=== PATIENT | male | born 1960 | race Caucasian/White ===

== ENCOUNTER 2016-09-28 07:33 | Emergency (ER) | payer OTHER ==
[2016-09-28] MEDS ORDERED: ASPIRIN PO STA (07:43)
[2016-09-28] MEDS ORDERED: NITROGLYCERIN SL PRN (07:43)
--- NOTE | 2016-09-28 08:02 | PROVIDER DOCUMENTATION ---
HPI-Chest Pain <Dio Brady - Last Filed: 09/28/16 09:23> - General Source: patient, EMS Unable to obtain history due to:: urgency - History of Present Illness-CP Location: reports: substernal Chest Pain Radiation: reports: arms Quality of Pain: reports: sharp Severity in ED: mild, moderate Onset/Duration: 3 days ago Timing: still present Context/Activities at Onset: reports: light activity Modifying Factors: improves with: nothing Associated Symptoms: reports: shortness of breath Nitro Today/Relief: no nitro taken today Aspirin Treatment Today: no aspirin today Prior Chest Pain/Cardiac Workup: reports: non-cardiac Similar Symptoms Previously?: Yes Recently Seen Here or By Another Healthcare Provider: No <Shakir Borges I - Last Filed: 09/28/16 09:27> - General Chief Complaint: Chest Pain Stated Complaint: CP Time Seen by Provider: 09/28/16 07:42 Allergies/Adverse Reactions: Patient Allergies Allergy/AdvReac Type Severity Reaction Status Date / Time butorphanol tartrate * Allergy Mild Unknown Verified 09/28/16 08:37 [From Stadol] ciprofloxacin [From Cipro] Allergy Mild Unknown Verified 09/28/16 08:37 nalmefene HCl * [From Revex] Allergy Mild Unknown Verified 09/28/16 08:37 naloxone HCl * [From Narcan] Allergy Mild Unknown Verified 09/28/16 08:37 tramadol HCl * [From Ultram] Allergy Mild Unknown Verified 09/28/16 08:37 Home Medications: Home Medication List Medication Instructions Recorded Confirmed Last Taken Type Alprazolam [Xanax] 0.5 mg PO TID 06/19/14 09/28/16 11/29/15 12:00 History Insulin Aspart [Novolog] 100 unit SQ DIRECTED 06/19/14 09/28/16 11/29/15 12: 00 History Insulin Glargine [Lantus] 20 units SQ DAILY 06/19/14 09/28/16 11/29/15 07:00 History Methadone 150 mg PO DAILY 06/19/14 09/28/16 11/29/15 06:00 History Pantoprazole [Protonix] 40 mg PO DAILY@0700 #30 tablet 07/17/14 09/28/16 07:00 Rx - History of Present Illness-CP Nature of Presenting Problem: Complains of chest pain starting 3 days ago substernally, radiating to his right arm. He has ran out of his xanax, and says the [facility] won't fill it. No other complaints (Shakir Borges I) Review of Systems - Adult - REVIEW OF SYSTEMS - ADULT Constitutional: reports: no symptoms reported Eyes: reports: no symptoms reported Ears, Nose, Mouth & Throat: reports: no symptoms reported Cardiovascular: reports: see HPI, chest pain Respiratory: reports: no symptoms reported Genitourinary: reports: no symptoms reported Musculoskeletal: reports: no symptoms reported Integumentary: reports: no symptoms reported Neurological: reports: no symptoms reported Psychiatric: reports: no symptoms reported Endocrine: reports: no symptoms reported Hematologic/Lymphatic: reports: no symptoms reported Allergic/Immunologic: reports: no symptoms reported All Other Systems: Reviewed and Negative <Shakir Borges I - Last Filed: 09/28/16 09:27> Past History - Adult - PAST MEDICAL HISTORY-ADULT Review of Records: reports: Old Records Reviewed, Nursing Assessment Review, Medications Reviewed, Social history reviewed & non-contributory. Major Childhood Illnesses: reports: denies history Cardiovascular: reports: denies history Respiratory: reports: denies history Gastrointestinal: reports: hepatitis Obstetrical/Gynecological: reports: denies history Genitourinary: reports: denies history Musculoskeletal: reports: arthritis, chronic pain, other (left BKA) Neurological: reports: denies history Endocrine/Immune: reports: Diabetes Other Conditions: reports: other (HEP C) - PRIOR SURGERIES/PROCEDURES Surgical/Procedure History: reports: orthopedic (extremity) - IMMUNIZATION STATUS Childhood Immunizations: See Nurse Assessment Flu Vaccine: See Nurse Assessment <Shakir Borges I - Last Filed: 09/28/16 09:27> Physical Exam-General - PHYSICAL EXAM-ADULT Initial Vital Signs Reviewed: Yes - CONSTITUTIONAL General Appearance: appears well, mild distress - EYES Eyes: PERRL/EOMI, pink conjunctivae, fundi clear, no AV nicking - HEAD, EARS, NOSE, MOUTH & THROAT HENMT: normocephalic/atraumatic, moist mucous membranes, normal ENT inspection - NECK Neck: non-tender - RESPIRATORY Respiratory: chest non-tender, lungs clear, normal breath sounds - CARDIOVASCULAR Cardiovascular: normal peripheral pulses, regular rate, rhythm, no edema - CHEST (BREASTS) Chest/Breast: deferred - GASTROINTESTINAL (ABDOMEN) Abdominal Exam: normal bowel sounds, non tender, soft - GENITOURINARY Female Genitalia/Pelvic Exam: deferred, external exam normal Male Genitalia: deferred Rectal Exam: deferred - LYMPHATIC Lymphatic: no adenopathy - MUSCULOSKELETAL Back Exam: normal inspection Extremity: normal range of motion, non-tender - SKIN Integumentary: normal color, normal turgor, warm/dry - NEUROLOGIC Neurologic: cleaning technician II-XII nml as tested, grossly normal, no motor/sensory deficits - PSYCHIATRIC Psych/Mental Status: normal mood/affect <Shakir Borges I - Last Filed: 09/28/16 09:27> Progress - XRAY 1 XRAY Study: Chest Impression: Normal XRAY Interpretation: negative <Dio Brady - Last Filed: 09/28/16 09:23> - EKG 1 Time of EKG reading by physician:: 07:00 EKG Read and Signed by:: Shakir Borges Rate: 83 Rhythm: sinus [place]: normal QRS: normal NM Interval: normal ST Wave: non-specific ST changes Prior EKG Comparison: unchanged from prior <Shakir Borges I - Last Filed: 09/28/16 09:27> - PLAN OF CARE/RESULTS Progress/Plan/Lab Results: Vital Signs Temp Pulse Resp BP Pulse Ox 09/28/16 09:20 68 125/74 97 09/28/16 07:46 98.3 F 83 18 186/107 100 butorphanol tartrate * [From Stadol] Allergy (Mild, Verified 09/28/16 08:37) Unknown ciprofloxacin [From Cipro] Allergy (Mild, Verified 09/28/16 08:37) Unknown nalmefene HCl * [From Revex] Allergy (Mild, Verified 09/28/16 08:37) Unknown naloxone HCl * [From Narcan] Allergy (Mild, Verified 09/28/16 08:37) Unknown tramadol HCl * [From Ultram] Allergy (Mild, Verified 09/28/16 08:37) Unknown Alprazolam [Xanax] 0.5 mg PO TID 06/19/14 Insulin Aspart [Novolog] 100 unit SQ DIRECTED 06/19/14 Insulin Glargine [Lantus] 20 units SQ DAILY 06/19/14 Methadone 150 mg PO DAILY 06/19/14 Pantoprazole [Protonix] 40 mg PO DAILY@0700 #30 tablet 07/17/14 Laboratory 09/28/16 09/28/16 09/28/16 07:52 07:52 07:52 WBC RBC Hgb Hct MCV MCH MCHC RDW Std Deviation Plt Count MPV Immature Gran % (Auto) Neut % (Auto) Lymph % (Auto) [place] % (Auto) Eos % (Auto) Baso % (Auto) Immature Gran # (Auto) Neut # (Auto) Lymph # (Auto) [place] # (Auto) Eos # (Auto) Baso # (Auto) PT 10.7 INR 1.01 PTT (Actin FS) 24.3 Sodium Potassium Chloride Carbon Dioxide Anion Gap BUN Creatinine Estimated GFR/1.73 m2 BUN/Creatinine Ratio Glucose Calculated Osmolality Calcium Magnesium Total Bilirubin AST ALT Alkaline Phosphatase Creatine Kinase Troponin T < 0.010 [id number]-G-[id number] Pept 747 H Total Protein Albumin Globulin Albumin/Globulin Ratio 09/28/16 09/28/16 07:52 07:52 WBC 7.21 RBC 4.58 L Hgb 13.1 L Hct 37.7 L MCV 82.3 MCH 28.6 MCHC 34.7 RDW Std Deviation 14.0 Plt Count 209 MPV 10.3 Immature Gran % (Auto) 0.3 Neut % (Auto) 74.6 Lymph % (Auto) 19.0 L [place] % (Auto) 5.4 Eos % (Auto) 0.3 Baso % (Auto) 0.4 Immature Gran # (Auto) 0.02 Neut # (Auto) 5.38 Lymph # (Auto) 1.37 [place] # (Auto) 0.39 Eos # (Auto) 0.02 Baso # (Auto) 0.03 PT INR PTT (Actin FS) Sodium 134 L Potassium 3.9 Chloride 95 L Carbon Dioxide 25 Anion Gap 14 BUN 8 Creatinine 0.9 Estimated GFR/1.73 m2 > 60 BUN/Creatinine Ratio 9 Glucose 302 H Calculated Osmolality 278 Calcium 9.6 Magnesium 1.7 Total Bilirubin 0.83 AST 50 H ALT 84 H Alkaline Phosphatase 85 Creatine Kinase 24 Troponin T Oqv-K-Bwguteorytx Pept Total Protein 7.4 Albumin 3.8 Globulin 3.6 Albumin/Globulin Ratio 1.1 Orders Category Date Time Status Cardiac Monitoring DIRECTED Care 09/28/16 07:43 Active Saline Loc NOW Care 09/28/16 07:43 Active CHEST-1 VIEW [RAD] Stat Exams 09/28/16 07:44 Draft CBC WITH ELECTRONIC DIFF [HEME] Stat Lab 09/28/16 07:52 Completed CK PROFILE [SP CHEM] Stat Lab 09/28/16 07:52 Completed COMPREHENSIVE METABOLIC PANEL [CHEM] Stat Lab 09/28/16 07:52 Completed MAGNESIUM [CHEM] Stat Lab 09/28/16 07:52 Completed PRO B-NATRIURETIC PEPTIDE Stat Lab 09/28/16 07:52 Completed PROTIME WITH INR [COAG] Stat Lab 09/28/16 07:52 Completed PTT [COAG] Stat Lab 09/28/16 07:52 Completed TROPONIN T Stat Lab 09/28/16 07:52 Completed Aspirin Med 09/28/16 07:43 Discontinued 325 mg PO STAT STA Furosemide [Lasix] Med 09/28/16 09:21 Discontinued 40 mg IV NOW ONE Nitroglycerin Sl [Nitroglycerin] Med 09/28/16 07:43 Active 0.4 mg SL Q5M PRN PRN EKG [EKG] Stat Ther 09/28/16 07:43 Ordered pt will be d/c home f/u with pcp,rx given, pt was clinically stable (Dio Brady) 0803: Hemodynamically stable. Awaiting labs/imaging studies (Shakir Borges I) Departure - Departure Time of Disposition Order: 09:24 Certified Medical Emergency: Emergent <Dio Brady - Last Filed: 09/28/16 09:23> <Shakir Borges I - Last Filed: 09/28/16 09:27> - Departure DIAGNOSIS: Anxiety Chest pain Qualifiers: Chest pain type: other chest pain Qualified Code(s): R07.89 - Other chest pain Disposition: HOME 01 Condition: Stable Additional Instructions: ED Follow Up Instructions: You have been treated by a care provider in the Emergency Department. These instructions are being provided to you so you can have an understanding of how to care for yourself upon discharge. Upon discharge from the Emergency Department, you are responsible for making arrangements for follow-up care by a physician of your choice. Take all prescribed medications as directed. Return to the Emergency Department immediately for any new or worsening symptoms. You may call the Physician Referral phone number at [phone] to obtain a list of Physicians who are taking new patients. Referrals: None,PCP [Primary Care Provider] - Instructions: Nonspecific Chest Pain, Panic Attacks, [id number] Attestation - Scribe Verification/Attestation Scribe:: Dio Brady Acting as Scribe for:: Shakir Borges Scribe documention review:: This chart was documented by a scribe and accurately reflects the service the provider performed and the decisions made by the provider. <Dio Brady - Last Filed: 09/28/16 09:23> Physician Attestation - Physician Attestation I, the provider, attest to the following statement:: Shakir Borges Physician documentation Attestation:: This documentation recorded by the scribe accurately reflects the service I personally performed and the decisions made by me. <Dio Brady - Last Filed: 09/28/16 09:23> - Physician Attestation I, the provider, attest to the following statement:: Shakir Borgse Physician documentation Attestation:: This documentation recorded by the scribe accurately reflects the service I personally performed and the decisions made by me. <Shakir Borges I - Last Filed: 09/28/16 09:27>
[2016-09-28 08:03] LABS: MANUAL DIFF NEEDED? NO
[2016-09-28 08:07] LABS: BASO% 0.4 % (0.0-0.8); EOS# 0.02 X1000 (0.0-0.7); EOS% 0.3 % (0.0-10.0); HEMATOCRIT 37.7 % (42.0-52.0); HEMOGLOBIN 13.1 g/dL (14.0-18.0); IMM GRAN# 0.02 X1000 (0.0-0.04); IMM GRAN% 0.3 % (0.0-0.5); LYMPH# 1.37 X1000 (1.2-3.4); MCH 28.6 PG (27-31); MCHC 34.7 g/dL (33-37); MCV 82.3 FL (81-99); MONO# 0.39 X1000 (0.11-0.59); MONO% 5.4 % (1.7-9.3); MPV 10.3 FL (7.4-10.4); NEUT% 74.6 % (42.2-75.2); PLT 209 X1000 (130-400); RBC 4.58 XMIL (4.7-6.1)
[2016-09-28 08:16] LABS: INR 1.01; PROTIME 10.7 Seconds (9.2-11.7); PTT 24.3 Seconds (22.0-36.0)
[2016-09-28 08:27] LABS: AGAP 14; ALBUMIN 3.8 g/dL (3.5-5.0); ALKALINE PHOSPHATASE 85 U/L (32-122); BUN 8 mg/dL (8-22); CALCIUM 9.6 mg/dL (8.8-10.2); CHLORIDE 95 mmol/L (98-107); CK PROFILE 24 U/L (24-204); COSMO 278; GOT 50 U/L (10-34); GPT 84 U/L (10-44); MAGNESIUM 1.7 mg/dL (1.5-2.7); POTASSIUM 3.9 mmol/L (3.5-5.1); SODIUM 134 mmol/L (136-145); TCO2 25 mmol/L (25-35); TOTAL BILIRUBIN 0.83 mg/dL (0.20-1.00); TOTAL PROTEIN 7.4 g/dL (6.3-8.3)
--- NOTE | 2016-09-28 08:42 | Diag Imaging Result Document ---
PROCEDURE NAME: CHEST-1 VIEW - 09/28/2016 PORTABLE CHEST X-RAY: COMPARISON: 12/12/2015. FINDINGS: The lungs are normally expanded and clear. Heart size and mediastinal contours are normal. No pneumothorax or pleural effusion. IMPRESSION: Negative exam.
[2016-09-28] MEDS ORDERED: LASIX IV ONE (09:21)
[2016-09-28 10:11] VITALS: BP 151/81
--- NOTE | 2016-09-28 13:46 | EKG Report ---
Test Performed on : 09/28/2016 07:38:45 AM Test Reason : Chest Pain Blood Pressure : / mmHG Vent. Rate : 083 BPM Atrial Rate : 083 BPM P-R Int : 152 ms QRS Dur : 106 ms QT Int : 418 ms P-R-T Axes : 083 -11 053 degrees QTc Int : 491 ms Normal sinus rhythm. Nonspecific ST and T wave abnormality Prolonged QT Abnormal ECG When compared with ECG of 12-DEC-2015 08:57, Nonspecific T wave abnormality has replaced inverted T waves in Inferior leads Unconfirmed Result
== END 2016-09-28 10:33 | disposition home or self-care (01) ==
LOC: EDBD → EDUNIT# → ED 07:33
DX: F41.9 Anxiety disorder, unspecified (principal); R07.89 Other chest pain; R06.02 Shortness of breath; M79.601 Pain in right arm; M19.90 Unspecified osteoarthritis, unspecified site; G89.29 Other chronic pain; E11.9 Type 2 diabetes mellitus without complications; B19.20 Unspecified viral hepatitis C without hepatic coma; Z79.4 Long term (current) use of insulin; Z79.899 Other long term (current) drug therapy; Z89.512 Acquired absence of left leg below knee
CPT/HCPCS: 71010; 80053; 82550; 83735; 83880; 84484; 85025; 85610; 85730; 93005; J1940